=== PATIENT | female | born 1935 | race Caucasian/White ===

== ENCOUNTER 2016-07-22 13:37 | Inpatient (IN) | payer OTHER ==
[~2016-07-22] VITALS: Ht 162.6 cm; Wt 82.6 kg
[~2016-07-22 13:37] MED LIST: ACETAMINOPHEN325 M1 PO; ALPRAZOLAM 0.0.25 M1 PO; ASPIRIN EC81 M1 PO; HYDROCODON-ACE1 EA12 PO; HYDROCODONE-APA1 TA1 PO; HYDROCODONE-IBU1 TAB PO; IBUPROFEN 600600 M1 PO; LIPITOR20 MG PO; LISINOPRIL40 MG PO; METOPROLOL SUCC25 M1 PO; NAPROSYN500 MG PO; PREDNISONE 5 MG5 M1 PO; TRAMADOL 50 MG50 MG PO; VICOPROFEN 2001 EACH PO; VITAMIN D31000 UNI2 PO; XALATAN2.5 ML OPHTHALMIC
[2016-07-22 13:44] VITALS: BP 93/54
[2016-07-22 14:25] LABS: HEMATOCRIT 42.5 % (37.0-47.0); HEMOGLOBIN 13.9 gm/dL (12.0-15.0); MANUAL DIFF YES; MCH 27.8 pg (26.0-34.0); MCHC 32.6 g/dL (28.0-37.0); MCV 85.1 fL (80.0-100.0); PLATELET COUNT 265 thou/uL (150-400); RDW 16.2 % (10.5-14.5); WBC 10.1 thou/uL (4.0-11.0)
[2016-07-22 14:35] LABS: CALCIUM 10.9 mg/dL (8.5-10.1); CREATININE 2.5 mg/dL (0.6-1.0)
[2016-07-22 14:37] LABS: ALBUMIN 3.6 g/dL (3.4-5.0); TOTAL BILIRUBIN 1.8 mg/dL (<0.1-1.0); TOTAL PROTEIN 7.4 g/dL (6.4-8.2)
[2016-07-22 14:48] LABS: ABSOLUTE NEUTROPHILS 7.2 thou/uL (1.4-8.2); ANISOCYTOSIS 1+; TOTAL CELL COUNT 100
[2016-07-22 16:18] LABS: ICTOTEST (BILI CONFIRMATORY) Negative (Negative); URINE BILIRUBIN 2+ (Negative); URINE BLOOD NEGATIVE (Negative); URINE COLOR YELLOW; URINE GLUCOSE-RANDOM* NEGATIVE (Negative); URINE KETONES TRACE (Negative); URINE LEUKOCYTES-REFLEX NEGATIVE (Negative); URINE PROTEIN (DIPSTICK) TRACE (Negative); URINE SPECIFIC GRAVITY 1.025 (1.003-1.035); URINE UROBILINOGEN 0.2 E.U./dl (0.2-1.0)
[2016-07-22] MEDS ORDERED: GABAPENTIN 100100 MG PO (16:48)
[2016-07-22] MEDS ORDERED: HYDROCHLOROTH12.5 M2 PO (16:49)
[2016-07-22 16:50] VITALS: BP 110/45
[2016-07-22 18:00] VITALS: BP 110/76
[2016-07-23 03:51] VITALS: BP 113/47
[2016-07-23 06:30] LABS: CALCIUM 9.6 mg/dL (8.5-10.1); CREATININE 1.7 mg/dL (0.6-1.0); POTASSIUM 5.2 mmol/L (3.5-5.1)
[2016-07-23 07:19] LABS: HEMATOCRIT 38.3 % (37.0-47.0); HEMOGLOBIN 12.4 gm/dL (12.0-15.0); MCH 27.7 pg (26.0-34.0); MCHC 32.5 g/dL (28.0-37.0); MCV 85.3 fL (80.0-100.0); RBC 4.49 mil/uL (4.20-5.00); RDW 16.1 % (10.5-14.5); WBC 6.8 thou/uL (4.0-11.0)
[2016-07-23 08:00] VITALS: BP 121/55
[2016-07-23 16:00] VITALS: BP 113/58
[2016-07-23 19:05] VITALS: BP 108/43
[2016-07-23 23:05] VITALS: BP 135/80
[2016-07-24 02:23] LABS: CALCIUM 9.8 mg/dL (8.5-10.1); CREATININE 1.4 mg/dL (0.6-1.0); MAGNESIUM 1.6 mg/dL (1.8-2.4); POTASSIUM 4.3 mmol/L (3.5-5.1)
[2016-07-24 03:05] VITALS: BP 133/42
[2016-07-24 03:26] LABS: HEMATOCRIT 40.4 % (37.0-47.0); HEMOGLOBIN 13.2 gm/dL (12.0-15.0); MCH 27.8 pg (26.0-34.0); MCHC 32.6 g/dL (28.0-37.0); MCV 85.2 fL (80.0-100.0); RBC 4.75 mil/uL (4.20-5.00); RDW 16.5 % (10.5-14.5); WBC 11.1 thou/uL (4.0-11.0)
[2016-07-24 07:57] VITALS: BP 141/53
[2016-07-24 14:33] VITALS: BP 141/53
[2016-07-24 15:00] VITALS: BP 141/53
== END 2016-07-24 15:28 | disposition home or self-care (01) | DRG 682 ==
LOC: ER 13:37 → EROBS 15:36 → 4N 15:36
PROVIDERS: Emergency Medicine; Hospitalist; Internal Medicine
DX: N17.0 Acute kidney failure with tubular necrosis (principal); G93.41 Metabolic encephalopathy; I10 Essential (primary) hypertension; E78.5 Hyperlipidemia, unspecified; E86.0 Dehydration; Z79.82 Long term (current) use of aspirin; Z79.899 Other long term (current) drug therapy; Z90.49 Acquired absence of other specified parts of digestive tract; Z88.8 Allergy status to other drugs, medicaments and biological substances; Z90.710 Acquired absence of both cervix and uterus; Z88.6 Allergy status to analgesic agent; Z87.891 Personal history of nicotine dependence
CPT/HCPCS: 10790

== ENCOUNTER 2016-12-13 11:50 | Inpatient (IN) | payer OTHER ==
[~2016-12-13] VITALS: Ht 162.6 cm; Wt 78.2 kg
[2016-12-13] VITALS (15 sets, daily range): BP systolic 92–114; BP diastolic 42–81
--- NOTE | ~2016-12-13 | EKG ---
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1935 Requested By: Kitty Dsouza Order Number: [id number] MD: Saulo Guaman Measurements Intervals [place] Rate: 78 P: 35 HI: 155 QRS: 67 QRSD: 90 T: 89 QT: 406 QTc: 463 Interpretive Statements Sinus rhythm ST elevation, high lateral and septal leads, consider injury Compared to ECG 02/17/2006 18:26:45 ST (T wave) deviation now present Electronically Signed On 12-17-2016 9:06:59 CDT by Saulo Guaman [email or web address] <ELECTRONICALLY SIGNED> By: Saulo Guaman MD, [facility] 12/17/16 0906 1200 1200 Saulo Guaman MD, [facility] /EPI
--- NOTE | ~2016-12-13 | EKG ---
[address] [address] ELECTROCARDIOGRAM REPORT Name: LUCILLEARACELI MARTIN Room #: 215- ADM IN M.R.#: [id number] Admission: 12/13/16 Attend Phys: Kvng Velazquez MD Discharge: Date of : 37 Report #: [id number] THIS REPORT FOR: //name// [facility] Test Date: 2016-12-14 Test Time: 09:52:56 Pat Name: ARACELI ADKINS Department: Room: 215 Gender: F Motion Picture Set Grip: jinny : 1935 Requested By: Brooke Resendiz Order Number: [id number] MD: Saulo Guaman Measurements Intervals [place] Rate: 69 P: 53 VA: 168 QRS: 76 QRSD: 77 T: 65 QT: 412 QTc: 442 Interpretive Statements Sinus rhythm Abnormal R-wave progression, early transition Borderline ST elevation, lateral and anteroseptal leads Baseline wander in lead(s) V2,V3 Compared to ECG 02/17/2006 18:26:45 No significant change was found Electronically Signed On 12-17-2016 9:19:19 CDT by Saulo Guaman [email or web address] <ELECTRONICALLY SIGNED> By: Saulo Guaman MD, [facility] 12/17/1619 Saulo Guaman MD, [facility] /EPI
--- NOTE | ~2016-12-13 | O ---
[facility] [place] [address] OPERATIVE REPORT Name: ARACELI ESPINOZA Room #: 215-P ADM IN M.R.#: [id number] Admission: 12/13/16 Attend Phys: Kvng Velazquez MD Discharge: Date of : 37 Report #: [id number] THIS REPORT FOR: //name// CC: Mallorie Velazquez DATE OF SERVICE: 12/15/2016 PREOPERATIVE DIAGNOSIS: Acute left upper extremity ischemia. 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 OPERATIVE PROCEDURE PERFORMED: Left brachial artery embolectomy. SURGEON: Chris Sher MD WEAVING PROFESSOR: Carmita Barajas. ANESTHESIA: General. OPERATIVE INDICATIONS: Ms. Espinoza is a 81-year-old female, recently admitted to the hospital for non-ST segment elevation myocardial infarction. The patient was being managed medically. Last evening, she began having symptoms of left hand pain and numbness. Arterial Doppler performed this morning demonstrated evidence of acute occlusion of the brachial artery. The patient is brought to the operating room now emergently for embolectomy. OPERATIVE SUMMARY: The patient brought to the operating room and placed on the OR table in supine position. After anesthesia was induced via the general endotracheal route and monitoring lines were positioned, the patient's left arm was prepped and draped in sterile fashion with chlorhexidine. A transverse incision was made along the inner aspect of the left upper arm. We dissected just inferior to the biceps muscle. We found the neurovascular bundle, dissected free the vein, nerve, and the brachial artery from surrounding tissue. The brachial artery was notably very small, approximately 1.5-2 mm in size. We gave the patient 10,000 units of intravenous heparin. We incised the artery transversely. We passed a #2 embolectomy catheter proximally and returned acute thrombus. We made two more passes and we got no clot out and we subsequently flushed this site with heparinized saline solution. We then passed the catheters distally in this artery; we did not get much clot out. We flushed it with heparinized saline. We then reapproximated the blood vessel utilizing 7-0 and 6-0 Prolene. Prior to completing the closure, the site was backbled. Once it was completed, we released the clamp proximally. A Doppler signal was present distal to the embolectomy site. The nail beds were pink and had capillary refill present. We then irrigated this site. We did not reverse the [facility] [address] [place] [address] OPERATIVE REPORT Name: ARACELI ESPINOZA Room #: 215-P [facility] IN ..#: [id number] Admission: 12/13/16 Attend Phys: Kvng Velazquez MD Discharge: Date of : 37 Report #: [id number] heparin. The wound was closed in multiple layers with absorbable suture. The procedure was completed. The patient was taken to postanesthesia care unit in stable condition. Operative blood loss was about 20 mL. There were no intraoperative complications noted. All sponge and needle counts were reported as correct. <ELECTRONICALLY SIGNED> By: Chris Sher MD 12/16/16 1832 1223 1241 Chris Sher MD /nt
--- NOTE | ~2016-12-13 | CATHLAB ---
[facility] [place] [address] INVASIVE PROCEDURE REPORT Name: ARACELI ADKINS Room #: 215-P [facility] IN ..#: [id number] Admission: 12/13/16 Attend Phys: Kvng Velazquez, Discharge: Date of : 37 Date of Service: 12/13/16 1621 Report #: [id number] THIS REPORT FOR: //name// APPROVED REPORT Patient Details Patient Status: ED Room #: The patient is a 81 year-old female Indication Non-STEMI , Dyspnea, Unstable angina Risk Factors Hypercholesterolemia, Coronary Artery DiseaseHypertension Previous Procedures/Diagnoses Previous PCI Procedure Narrative The Right Groin^ was infiltrated with 1% Lidocaine subcutaneous anesthesia. A PINNACLE 4FR Sheath #[id number] sheath was inserted into the LFA^. Coronary angiography was performed using coronary diagnostic catheters. The right coronary system was accessed and visualized with a JR4 catheter. The left coronary system was accessed and visualized with a JL4 catheter. The left ventricle was accessed and visualized with a PIGTAIL catheter. Left ventricular/Aortic Valve gradient assessed via catheter pullback. Left ventriculogram was performed in FRENCH and AFGHAN projection. Hemostasis was obtained with manual pressure following sheath removal without any complications. The patient tolerated the procedure well and there were no complications associated with the procedure. There was no hematoma. Intraoperative Conscious Sedation Sedation start time: 14:39 Case end Time: 15:25 Fentanyl mcg Versed mg Fluoro Time: 2.10 minutes Dose: DAP 2172.70 cGycm2 294 mGy Contrast Type and Amount: Visipaque 150 ml Coronary Angiography The patient's coronary anatomy is co- dominant. [facility] [address] [place] [address] INVASIVE PROCEDURE REPORT Name: ARACELI ADKINS Bao Room #: 215-P ADM IN .R.#: [id number] Admission: 12/13/16 Attend Phys: Kvng Velazquez, Discharge: Date of : 37 Date of Service: 12/13/16 1621 Report #: [id number] Diagnostic Cath Left Main Large-caliber vessel, no flow limiting lesions. LAD Mild plaquing in the proximal segment. The distal LAD segment is a small-caliber vessel, has mild diffuse disease. Diagonal 2 Moderate size caliber vessel- originating off the mid LAD segment, with no flow-limiting lesions Circumflex Mild plaquing noted in the proximal distal segments, 30%. OM2 Moderate size caliber vessel, originating off the distal left circumflex artery. With no flow-limiting lesions. Right Coronary Codominant RCA, supplies a PDA. Mild plaquing noted in the proximal segment. There is a stent in the distal segment of the RCA, patent with mild restenosis. R PDA Moderate size caliber vessel, with no flow-limiting lesions. Left Ventriculography The left ventricle is mildly dilated in size with decreased contractility. The left ventricular ejection fraction is estimated to be 30-35%. Left ventricular wall motion abnormalities are present. Hemodynamics The aortic pressure is 101/65 mmHg with a mean of 82 mmHg. The left ventricular pressure is 112/29 mmHg with a mean of mmHg. The left ventricular end diastolic pressure is 33 mmHg. Conclusion 1. 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 2. Patent LAD with mild disease. 3. Patent stent in the distal RCA with mild restenosis. 4. Recommend medical therapy. Recommendations Aggressive Medical Therapy <ELECTRONICALLY SIGNED> By: Kimo Rogers MD 12/13/16 1621 162 162 Kimo Rogers MD /INF
--- NOTE | ~2016-12-13 | 2DMMODE ---
[facility] [address] [place] [address] 2 D/M-MODE ECHOCARDIOGRAM Name: LUCILLEARACELI Room #: 215-P [facility] IN M.R.#: [id number] Admission: 12/13/16 Attend Phys: Kvng Velazquez, Discharge: Date of : 37 Date of Service: 12/13/16 1443 Report #: [id number] THIS REPORT FOR: //name// APPROVED REPORT Study performed: 12/13/2016 13:43:24 EXAM: Comprehensive 2D, Doppler, and color-flow Echocardiogram Patient Location: ER Room #: 3 Status: routine BSA: 1.87 HR: 71 bpm BP: 102/52 mmHg Rhythm: NSR Other Information Study Quality: Adequate Indications Elevated troponin of 20. Neck pain. Hx: CAD, stents 2D Dimensions RVDd: 30.89 mm LVEF(%): 43.80 (>50%) IVSd: 10.26 (7-11mm) LVOT Diam: 19.65 (18-24mm) LVDd: 53.00 mm PWd: 8.91 (7-11mm) Ascending Ao: 27.73 (22-36mm) LVDs: 41.42 (25-40mm) Aortic Root: 27.41 mm Cox's LVEF: 43.80 % Volumes Left Atrial Volume (Systole) Single Plane 4CH: 56.66 mL Single Plane 2CH: 59.78 mL LA ESV Index: 33.00 mL/m2 Aortic Valve AoV Peak Nate.: 1.33 m/s AO Peak Gr.: 7.08 mmHg LVOT Max P.57 mmHg LVOT Max V: 0.94 m/s NABEEL Vmax: 2.15 cm2 Mitral Valve E/A Ratio: 0.7 MV Decel. Time: 169.83 ms [facility] [email or web address] [address] 2 D/M-[facility]P [facility] IN .R.#: [id number] Admission: 12/13/16 Attend Phys: Kvng Velazquez, Discharge: Date of : 37 Date of Service: 12/13/16 1443 Report #: [id number] MV E Max Nate.: 0.85 m/s MV A Nate.: 1.14 m/s MV PHT: 49.25 ms IVRT: 92.27 ms Pulmonary Valve PV Peak Nate.: 0.82 m/s PV Peak Gr.: 2.68 mmHg Tricuspid Valve TR Peak Nate.: 3.14 m/s RAP Estimate: 10.00 mmHg TR Peak Gr.: 39.52 mmHg PA Pressure: 50.00 mmHg Left Ventricle The left ventricle is normal size. Regional wall motion abnormalities are noted. Mild basal septal hypertrophy is present. Left ventricular systolic function is moderate to severely decreased. LVEF is 30-35%. Grade I - abnormal relaxation pattern. Right Ventricle The right ventricle is normal size. Right ventricle is mildly hypokinetic. Atria Left atrium is dilated. The right atrium size is normal. Aortic Valve The Aortic valve is sclerotic. No aortic regurgitation is present. There is no aortic valvular stenosis. Mitral Valve Mitral valve leaflets are thickened and calcified. There is mitral annular calcification. Moderate mitral regurgitation. No evidence of mitral valve stenosis. Tricuspid Valve The tricuspid valve is normal in structure. There is mild to moderate tricuspid regurgitation. The right atrial pressure is estimated at 10 mmHg. There is moderate pulmonary hypertension with an estimated PAP of 50mmHg. Pulmonic Valve The pulmonary valve is normal in structure. Mild pulmonic regurgitation. Great [address] [address] 2 D/M-MODE ECHOCARDIOGRAM Name: LUCILLE,ARACELI L Room #: 215-P [facility] IN [facility]#: [id number] Admission: 12/13/16 Attend Phys: Kvng Velazquez, Discharge: Date of : 37 Date of Service: 12/13/16 1443 Report #: [id number] The aortic root is normal in size. The ascending aorta is normal in size. IVC is normal in size and collapses >50% with inspiration. <Conclusion> The left ventricle is normal size. Left ventricular systolic function is moderate to severely decreased. Regional wall motion abnormalities are noted. LVEF is 30-35%. The right ventricle is normal size. Right ventricle is mildly hypokinetic. Left atrium is dilated. The Aortic valve is sclerotic. Mitral valve leaflets are thickened and calcified. There is mitral annular calcification. Moderate mitral regurgitation. The tricuspid valve is normal in structure. There is mild to moderate tricuspid regurgitation. The right atrial pressure is estimated at 10 mmHg. There is moderate pulmonary hypertension with an estimated PAP of 50mmHg. The pulmonary valve is normal in structure. Mild pulmonic regurgitation. <ELECTRONICALLY SIGNED> By: Kevin Smith MD 12/13/16 1443 1443 1443 Kevin Smith MD /INF
--- NOTE | ~2016-12-13 | 2DMMODE ---
[facility] [address] [address] 2 D/M-MODE ECHOCARDIOGRAM Name: ARACELI ADKINS Room #: 215-P ADM IN M.R.#: [id number] Admission: 12/13/16 Attend Phys: Kvng Velazquez, Discharge: Date of : 37 Date of Service: 12/16/16 1316 Report #: [id number] THIS REPORT FOR: //name// APPROVED REPORT Study performed: 12/16/2016 10:31:21 EXAM: Limited 2D Echocardiogram with contrast Patient Location: Bedside Room #: [facility] BSA: 1.84 HR: 74 bpm BP: 102/52 mmHg Other Information Study Quality: Adequate Indications Embolus to arm. Rule out apical thrombus. (Complete echo done 12/13/2016) Echo Enhancing Agent Indication: Rule out thrombus Agent(s) / Amount(s) Used: Optison 3 cc Left Ventricle The left ventricle is normal size. Left ventricular systolic function is moderate to severely decreased. with apical dyskinesia No left ventricular thrombus noted. LVEF is 30-35%. Right Ventricle The right ventricle is normal size. Atria Left atrium is dilated. The right atrium size is normal. Aortic Valve The Aortic valve is sclerotic. Mitral Valve There is mitral annular calcification. Mitral valve leaflets are thickened and calcified. no stenosis Tricuspid Valve The tricuspid valve is normal in structure. [facility] [address] [place] [address] 2 D/M-MODE ECHOCARDIOGRAM Name: ARACELI ADKINS Room #: 215-P ADM IN M.R.#: [id number] Admission: 12/13/16 Attend Phys: Kvng Velazquez, Discharge: Date of : 37 Date of Service: 12/16/16 1316 Report #: [id number] Pulmonic Valve The pulmonary valve is normal in structure. Great Vessels IVC is normal in size and collapses >50% with inspiration. Pericardium Trivial pericardial effusion noted. <Conclusion> The left ventricle is normal size. Left ventricular systolic function is moderate to severely decreased. with apical dyskinesia No left ventricular thrombus noted. LVEF is 30-35%. The right ventricle is normal size. Left atrium is dilated. The Aortic valve is sclerotic. There is mitral annular calcification. Mitral valve leaflets are thickened and calcified. no stenosis The tricuspid valve is normal in structure. The pulmonary valve is normal in structure. Trivial pericardial effusion noted. <ELECTRONICALLY SIGNED> By: Kevin Smith MD 12/16/166 15 15 Kevin Smith MD /INF
--- NOTE | ~2016-12-13 | HC ---
[facility] [place] [address] CONSULTATION Name: ARACELI ADKINS Room #: 215-P ADM IN M.R.#: [id number] Admission: 12/13/16 Attend Phys: Kvng Velazquez MD Discharge: Date of : 37 Report #: [id number] THIS REPORT FOR: //name// CC: Mallorie Velazquez CHIEF COMPLAINT: Difficulties voiding. Bladder prolapse. HISTORY OF PRESENT ILLNESS: The patient is a 81-year-old woman who is being seen today at the request of Dr. Velazquez for evaluation and management of difficulty voiding and bladder prolapse. Specifically, she was admitted with a non-STEMI. She had left heart catheterization performed and she is found to have a cardiomyopathy, not require intervention. She currently has developed acute thrombus in the brachial artery and is to undergo brachial artery embolectomy. Her genitourinary history is significant for difficult sense of incomplete emptying. She denies incontinence. She has been undergoing evaluation by spring tacker and urologist who is Dr. Scott. She does report some hesitancy. She was catheterized yesterday for 300 mL and this morning had a bladder scan which showed 171 mL in her bladder and 117 last night. ALLERGIES: INCLUDE MORPHINE, BACLOFEN AND HYDROMORPHONE. ILLNESSES: Hypertension, hyperlipidemia, coronary artery disease. SOCIAL HISTORY: She does not smoke. FAMILY HISTORY: Noncontributory. REVIEW OF SYSTEMS: She denies chest pain at the present time and has symptoms consistent with an acute obstruction of the brachial artery with of the left brachial artery. PHYSICAL EXAMINATION: GENERAL: On exam, she is awake, alert, sitting up in bed. VITAL SIGNS: Temperature is 36.3, pulse 68, respirations 16, blood pressure 112/69. ABDOMEN: Soft, without masses. LABORATORY DATA: White cell count 7.2 thousand, hemoglobin 12.3, hematocrit 37.5, platelets 192,000. Sodium is 143, potassium 3.6, chloride 108, CO2 25, BUN 23, creatinine 1.0, calcium 9.3. Urine clean catch from July is clear yellow, specific gravity is 1.025, pH is 5.5, negative for nitrites, blood and leukocyte esterase. IMPRESSION: Prolapsed bladder with voiding dysfunction in the face of multiple [facility] [address] [place] [address] CONSULTATION Name: [facility] Room #: [address] [place] [address] IN M.R.#: [id number] Admission: 12/13/16 Attend Phys: Kvng Velazquez MD Discharge: Date of : 37 Report #: [id number] comorbidities. PLAN: We will follow and monitor postvoid residuals with you. Ultimately, I recommend she follow up with Dr. Scott as an outpatient, once the acute issues involving her current hospitalization have stabilized, we will follow and assist with management. She may require catheterization or intermittent catheterization should she has been unable to void and carry high residuals. <ELECTRONICALLY SIGNED> By: Juan A Lindsey MD 12/16/16 0647 1002 1106 Juan A Lindsey MD /nt
--- NOTE | ~2016-12-13 | EKG ---
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 : 1935 Requested By: Kvng Velazquez Order Number: [id number] MD: Saulo Guaman Measurements Intervals [place] Rate: 71 P: 45 DE: 163 QRS: 72 QRSD: 86 T: 88 QT: 427 QTc: 465 Interpretive Statements Sinus rhythm Low voltage, precordial leads ST elevation consider high lateral and septal injury Compared to ECG 02/17/2006 18:26:45 No significant change was found Electronically Signed On 12-17-2016 9:08:43 CDT by Saulo Guaman [email or web address] <ELECTRONICALLY SIGNED> By: Saulo Guaman MD, [facility] 12/17/16 0908 1337 1337 Saulo Guaman MD, [facility] /EPI
--- NOTE | ~2016-12-13 | EKG ---
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: 1935 Requested By: Troy Newsome Order Number: [id number] MD: Saulo Guaman Measurements Intervals [place] Rate: 73 P: 53 HI: 166 QRS: 55 QRSD: 93 T: 23 QT: 414 QTc: 457 Interpretive Statements Sinus rhythm Low voltage, precordial leads Abnormal R-wave progression, early transition Minimal ST depression, inferior leads Borderline ST elevation, lateral leads Compared to ECG 02/17/2006 18:26:[address] elevation is no longer present Electronically Signed On 12-17-2016 9:24:44 CDT by Saulo Guaman [email or web address] <ELECTRONICALLY SIGNED> By: aSulo Guaman MD, [facility] 12/17/16 0924 0 020 Saulo Guaman MD, [facility] /EPI
--- NOTE | ~2016-12-13 | S ---
[facility] [address] [address] [place] [address] SURGICAL PATH RPT PROCEDURE Name: ALIZE ESPINOZA Room #: 215-P ADM IN M.R.#: [id number] Admission: 12/13/16 Date of : 39 Discharge: Report #: [id number] Path Case #: [id number] PATHOLOGY REPORT COLLECTION DATE: 12/15/2016 RECEIVED DATE: 12/16/2016 SUBMITTING PHYS: Dr. Chris Sher OTHER PHYS: Dr. Kvng Lowe SPECIMEN(S) RECEIVED: A.Left brachial embolus * * * * * * * * * * * * FINAL DIAGNOSIS: Left brachial embolus, removal: - Fibrin and elements of peripheral blood, consistent with embolus. (IUV:mml; 12/17/2016) PATHOLOGIST: Elli Dietrich M.D. REPORT ELECTRONICALLY SIGNED BY: Elli Dietrich M.D. DATE/TIME: 12/17/2016 15:26 * * * * * * * * * * * * GROSS PATHOLOGY: The specimen is received in formalin, labeled "Alize Espinoza and left brachial embolus", is a longitudinal 1.0 x 0.4 cm dark brown clot. Entirely submitted in A1. (SWS; 12/16/2016) CLINICAL HISTORY: Left brachial embolus INITIAL CPT CODE(S): A; 92256 Professional services performed by [facility] at [facility] [address], [place] [address] Technical services performed by [facility] at [address] [place] [address], [address], [place] [address]. [facility] [address] [place] [address] SURGICAL PATH RPT PROCEDURE Name: LUCILLEALIZE MARTIN Room #: 215-P ADM IN M.R.#: [id number] Admission: 12/13/16 Date of : 39 Discharge: Report #: [id number] Path Case #: [id number] [address] PHONE: [phone] DIRECTOR: Curtis Bermudez M.D. * * * END OF REPORT * * *
--- NOTE | ~2016-12-13 | HC ---
[facility] [place] [address] CONSULTATION Name: ARACELI ADKINS Room #: 215-P [facility] IN M.R.#: [id number] Admission: 12/13/16 Attend Phys: Kvng Velazquez MD Discharge: 12/18/16 Date of : 39 Report #: [id number] THIS REPORT FOR: //name// CC: Mallorie Velazquez DATE OF SERVICE: 12/13/2016 REASON FOR CONSULTATION: Elevated troponin. HISTORY OF PRESENT ILLNESS: The patient is a 81-year-old with a history of hypertension, hyperlipidemia as well as history of coronary artery disease, status post DC in her 60s x 2. She said that she had her MIs at [facility]. We have no records of this available. Apparently, 2-3 days ago, she started developing a pressure between her shoulder blades that radiated to her neck and to her bilateral shoulders. She denied that this really worsened with exertion or activity, but this did last and she said it was very severe. This resolved and for the past 24-48 hours, she has just had profound fatigue. She denies any chest pain. She denies any pain in her neck or any pains radiating down her arms. She denies any chest pain currently. She reports that she is profoundly weak and has had difficulty walking, but denies any shortness of breath. She denies any PND or orthopnea. She denies presyncope or syncope. PAST MEDICAL HISTORY: 1. Hypertension. 2. Hyperlipidemia. 3. Coronary artery disease. 4. Recent admission in July for dehydration and acute renal failure, which improved with discontinuation of lisinopril and naproxen. SOCIAL HISTORY: Does not smoke. FAMILY HISTORY: Noncontributory. ALLERGIES: INCLUDE MORPHINE, BACLOFEN AND DILAUDID. PHYSICAL EXAMINATION: VITAL SIGNS: Temperature is 36.4, pulse 66, respiration 16, blood pressure 112/53, sats are 94% on room air. GENERAL: She is alert and oriented x 3, in no acute distress. HEENT: Oropharynx is clear. Mucous membranes are moist. Sclerae are anicteric. NECK: Supple, with no thyromegaly. HEART: Regular rate and rhythm with no murmurs, rubs or gallops. LUNGS: Clear to auscultation bilaterally. ABDOMEN: Soft, nontender, nondistended with no hepatosplenomegaly. [address] [address] CONSULTATION Name: ARACELI ADKINS Room #: 215-P [facility] IN [facility]#: [id number] Admission: 12/13/16 Attend Phys: Kvng Velazquez MD Discharge: 12/18/16 Date of : 39 Report #: [id number] EXTREMITIES: There is no clubbing, cyanosis or edema. NEUROLOGIC: Her cranial nerves 2-12 are intact. LABORATORY DATA: White count 7.5, hemoglobin 12.5, platelets 167. Coags: INR 1.1. Chemistry: Sodium ____, T-bili 2.1, AST 64, ALT 29. Troponin is elevated at 20.8. Medications have been reviewed and she has received Lipitor, aspirin and metoprolol here in the Emergency Room and heparin drip is being initiated. EKG demonstrates normal sinus rhythm with evidence of an isolated ST segment in lead V2 with a T-wave inversion, but no concordant ST segments anywhere else on the EKG. This is different than her last EKG documented here from 2005. A stat echo was performed while I was in the room and there is evidence of anterior septal hypokinesis with some thinning suggestive that this may be old, but I cannot rule out an acute process or subacute process. A repeat EKG was performed while I was in the room as well and there have not been any changes in this isolated ST segment in lead V2. ASSESSMENT AND PLAN: 1. Non-ST segment elevation myocardial infarction. 2. Coronary artery disease. 3. Hypertension. 4. Hyperlipidemia. 5. History of prior acute renal failure. 6. Elevated liver function tests. IMPRESSION: In summary, the patient is a 81-year-old with history of prior coronary artery disease presenting with weakness as her primary complaint. Her pain across her shoulders that occurred and resolved a few days ago likely represents an episode of unstable angina. She is currently chest pain free and her presentation is more suggestive of a non-ST segment elevation at this time. However, we have discussed the situation with the patient and the daughter and we will proceed with diagnostic catheterization today. We have discussed the details of this procedure with the daughter and the patient including the risks, which include but not limited to bleeding, vascular damage, stroke, myocardial infarction and need for possible surgical interventions. They understand these risks and are willing to proceed. <ELECTRONICALLY SIGNED> By: Troy Newsome MD 12/19/16 1106 1404 Troy Newsome MD /nt
[~2016-12-13 11:50] MED LIST changes: +GABAPENTIN 100100 MG PO; +HYDROCHLOROTH12.5 M2 PO
[2016-12-13 12:22] LABS: HEMATOCRIT 37.2 % (37.0-47.0); HEMOGLOBIN 12.5 gm/dL (12.0-15.0); MCH 29.8 pg (26.0-34.0); MCHC 33.7 g/dL (28.0-37.0); MCV 88.6 fL (80.0-100.0); PLATELET COUNT 167 thou/uL (150-400); RBC 4.19 mil/uL (4.20-5.00); RDW 14.6 % (10.5-14.5); WBC 7.5 thou/uL (4.0-11.0)
[2016-12-13 12:23] LABS: MANUAL DIFF YES
[2016-12-13 12:29] LABS: CALCIUM 9.9 mg/dL (8.5-10.1); CREATININE 0.9 mg/dL (0.6-1.0); POTASSIUM 3.6 mmol/L (3.5-5.1)
[2016-12-13 12:37] LABS: TOTAL BILIRUBIN 2.1 mg/dL (<0.1-1.0); TOTAL PROTEIN 6.3 g/dL (6.4-8.2)
[2016-12-13 12:38] LABS: TROPONIN-I 20.82 ng/mL (<0.04-0.07)
[2016-12-13 12:50] LABS: APTT 24.4 Seconds (24.5-32.8); INR 1.1; PROTIME 10.9 Seconds (9.3-11.4)
[2016-12-13 13:21] LABS: ABSOLUTE NEUTROPHILS 4.6 thou/uL (1.4-8.2); PLATELET ESTIMATE NORMAL; TOTAL CELL COUNT 100
[2016-12-13] MEDS ORDERED: KEPPRA 500 MG500 M1 PO (17:02)
[2016-12-13] MEDS ORDERED: PROZAC20 MG PO (17:02)
[2016-12-13] MEDS ORDERED: VITAMIN D1000 UNI1 PO (17:03)
[2016-12-13] MEDS ORDERED: VITAMIN B-12500 MCG PO (17:04)
[2016-12-13] MEDS ORDERED: LOPRESSOR25 PO (17:06)
[2016-12-14 03:30] VITALS: BP 116/63
[2016-12-14 03:36] VITALS: BP 116/63
[2016-12-14 04:21] LABS: HEMATOCRIT 37.5 % (37.0-47.0); HEMOGLOBIN 12.3 gm/dL (12.0-15.0); MCH 29.4 pg (26.0-34.0); MCHC 32.8 g/dL (28.0-37.0); MCV 89.7 fL (80.0-100.0); RBC 4.18 mil/uL (4.20-5.00); RDW 15.3 % (10.5-14.5); WBC 7.2 thou/uL (4.0-11.0)
[2016-12-14 04:35] LABS: ALBUMIN 2.8 g/dL (3.4-5.0); CALCIUM 9.3 mg/dL (8.5-10.1); POTASSIUM 3.6 mmol/L (3.5-5.1); TOTAL BILIRUBIN 1.6 mg/dL (<0.1-1.0); TOTAL PROTEIN 6.1 g/dL (6.4-8.2)
[2016-12-14 07:34] VITALS: BP 117/64
[2016-12-14 10:53] VITALS: BP 114/52
[2016-12-14 11:18] LABS: CHOLESTEROL 102 mg/dL (<200); HDL CHOLESTEROL 50 mg/dL (>40); LDL CHOLESTEROL 35 mg/dL (<100); TRIGLYCERIDE 89 mg/dL (<150); VLDL 18 mg/dL (<40)
[2016-12-14 15:09] VITALS: BP 91/66
[2016-12-14 20:07] VITALS: BP 95/54
[2016-12-15] VITALS (8 sets, daily range): BP systolic 94–118; BP diastolic 43–87
[2016-12-16 04:03] VITALS: BP 95/44
[2016-12-16 09:10] VITALS: BP 88/68
[2016-12-16 10:00] LABS: HEMATOCRIT 36.4 % (37.0-47.0); HEMOGLOBIN 12.1 gm/dL (12.0-15.0); MCH 29.8 pg (26.0-34.0); MCHC 33.3 g/dL (28.0-37.0); MCV 89.7 fL (80.0-100.0); RBC 4.06 mil/uL (4.20-5.00); RDW 15.4 % (10.5-14.5); WBC 6.3 thou/uL (4.0-11.0)
[2016-12-16 10:06] LABS: CALCIUM 9.1 mg/dL (8.5-10.1); MAGNESIUM 1.3 mg/dL (1.8-2.4); POTASSIUM 3.7 mmol/L (3.5-5.1)
[2016-12-16 11:40] VITALS: BP 108/57
[2016-12-16 15:18] VITALS: BP 99/46
[2016-12-16 20:17] VITALS: BP 98/46
[2016-12-16 21:00] VITALS: BP 116/63
[2016-12-17 04:38] VITALS: BP 110/57
[2016-12-17 06:02] LABS: CALCIUM 9.3 mg/dL (8.5-10.1); CREATININE 0.9 mg/dL (0.6-1.0); MAGNESIUM 1.4 mg/dL (1.8-2.4); POTASSIUM 3.6 mmol/L (3.5-5.1)
[2016-12-17 06:22] LABS: HEMATOCRIT 37.9 % (37.0-47.0); HEMOGLOBIN 12.3 gm/dL (12.0-15.0); MCH 29.3 pg (26.0-34.0); MCHC 32.4 g/dL (28.0-37.0); MCV 90.4 fL (80.0-100.0); RBC 4.2 mil/uL (4.20-5.00); WBC 6.8 thou/uL (4.0-11.0)
[2016-12-17 08:25] VITALS: BP 141/70
[2016-12-17 11:45] VITALS: BP 113/48
[2016-12-17 15:50] VITALS: BP 122/61
[2016-12-17 19:35] VITALS: BP 125/49
[2016-12-18 04:45] VITALS: BP 104/56
[2016-12-18 07:06] LABS: HEMOGLOBIN 10.8 gm/dL (12.0-15.0); MCH 30.2 pg (26.0-34.0); MCHC 33.7 g/dL (28.0-37.0); MCV 89.6 fL (80.0-100.0); RBC 3.57 mil/uL (4.20-5.00); RDW 14.9 % (10.5-14.5); WBC 5.3 thou/uL (4.0-11.0)
[2016-12-18 07:07] VITALS: BP 98/74
[2016-12-18 07:14] LABS: CALCIUM 8.8 mg/dL (8.5-10.1); CREATININE 0.6 mg/dL (0.6-1.0); MAGNESIUM 1.5 mg/dL (1.8-2.4); POTASSIUM 3.7 mmol/L (3.5-5.1)
[2016-12-18 09:21] VITALS: BP 118/54
[2016-12-18 11:30] VITALS: BP 112/91
[2016-12-18] MEDS ORDERED: CYCLOBENZAPRINE5 MG PO (12:12)
[2016-12-18] MEDS ORDERED: PRADAXA150 MG PO (12:13)
[2016-12-18] MEDS ORDERED: CARVEDILOL6.25 MG PO (12:14)
[2016-12-18 17:21] VITALS: BP 126/98
[2016-12-18 17:24] VITALS: BP 126/98
== END 2016-12-18 17:50 | DRG 253 ==
LOC: ER 11:50 → 2N 13:27
PROVIDERS: Internal Medicine; Physician Assistant
PROC: 4A023N7 Measurement of Cardiac Sampling and Pressure, Left Heart, Percutaneous Approach (ICD-10-PCS; 2016-12-14)
PROC: B2151ZZ Fluoroscopy of Left Heart using Low Osmolar Contrast (ICD-10-PCS; 2016-12-14)
PROC: B2111ZZ Fluoroscopy of Multiple Coronary Arteries using Low Osmolar Contrast (ICD-10-PCS; 2016-12-14)
PROC: 03C83ZZ Extirpation of Matter from Left Brachial Artery, Percutaneous Approach (ICD-10-PCS; principal; 2016-12-15)
PROC: 05HB33Z Insertion of Infusion Device into Right Basilic Vein, Percutaneous Approach (ICD-10-PCS; 2016-12-15)
DX: I21.4 Non-ST elevation (NSTEMI) myocardial infarction (principal); I74.2 Embolism and thrombosis of arteries of the upper extremities; E44.0 Moderate protein-calorie malnutrition; N81.10 Cystocele, unspecified; I25.10 Atherosclerotic heart disease of native coronary artery without angina pectoris; G70.00 Myasthenia gravis without (acute) exacerbation; E78.5 Hyperlipidemia, unspecified; I11.9 Hypertensive heart disease without heart failure; R94.5 Abnormal results of liver function studies; Z60.2 Problems related to living alone; Z88.6 Allergy status to analgesic agent; Z90.710 Acquired absence of both cervix and uterus; Z90.49 Acquired absence of other specified parts of digestive tract; Z79.82 Long term (current) use of aspirin; Z79.899 Other long term (current) drug therapy; I25.2 Old myocardial infarction; Z87.891 Personal history of nicotine dependence; Z68.29 Body mass index [BMI] 29.0-29.9, adult
CPT/HCPCS: 10081; 27001; 50101; 50386; 50417; 50455; 51165; 51301; 56524; 56526; 56528; 56531; 62110; 62900; 70005

== ENCOUNTER 2017-03-11 12:48 | Inpatient (IN) | payer OTHER ==
[~2017-03-11] VITALS: Ht 162.6 cm; Wt 73.7 kg
--- NOTE | ~2017-03-11 | EKG ---
[address] [place] [address] ELECTROCARDIOGRAM REPORT Name: LUCILLEARACELI MARTIN Room #: 360- ADM IN M.R.#: [id number] Admission: 03/11/17 Attend Phys: Bradly Trinidad MD Discharge: Date of : 39 Report #: [id number] THIS REPORT FOR: //name// [facility] ED Test Date: 2017-03-11 Test Time: 13:15:34 Pat Name: ARACELI ADKINS Department: Room: [facility] Gender: F Rn Angiography: QAMAR : 1935 Requested By: Kitty Dsouza Order Number: [id number] MD: Troy Newsome Measurements Intervals [place] Rate: 132 P: 66 ME: 150 QRS: 81 QRSD: 91 T: 56 QT: 301 QTc: 446 Interpretive Statements Sinus tachycardia Atrial premature complexes LAE, consider biatrial enlargement Borderline right axis deviation Artifact in lead(s) II,III,aVL,aVF Compared to ECG 12/15/2016 02:01:36 Atrial premature complex(es) now present Sinus rhythm no longer present ST (T wave) deviation no longer present Electronically Signed On 03-11-2017 21:48:50 [employer] by Troy Newsome [email or web address] <ELECTRONICALLY SIGNED> By: Troy Newsome MD 03/11/17 2148 1315 1315 Troy Newsome MD /EPI
--- NOTE | ~2017-03-11 | HC ---
[facility] [place] [address] CONSULTATION Name: ARACELI ADKINS Bao Room #: 247-P [facility] IN M.R.#: [id number] Admission: 03/11/17 Attend Phys: Bradly Trinidad MD Discharge: 03/13/17 Date of : 39 Report #: [id number] THIS REPORT FOR: //name// CC: Nicole Trinidad HISTORY OF PRESENT ILLNESS: The patient is a 81-year-old white female who presents to the emergency room with nausea and vomiting. Since admission, she is found to be hypotensive, tachypneic, and tachycardic. She is felt to have severe sepsis. Pulmonary consultation was requested. She is currently in the ICU. She is semi somnolent. She is hypotensive. Most of the history is obtained from the family and the records. She currently resides in a detention due to progressive generalized weakness along with dementia. She is felt to have Alzheimer dementia. According to the family, the patient's health has been declining since July. Prior to that, she was living independently. She has had trouble with poor short term memory, though this has worsened along with forgetfulness. She has also had progressive weakness resulting in recurrent falls. About a month ago, she was hospitalized and was diagnosed with myocardial infarction. She is also felt to have cardiomyopathy. She was in her usual state of health until the patient was found to be confused and dyspneic. She was admitted for possible pneumonia. PAST MEDICAL HISTORY: Notable for Takotsubo cardiomyopathy, hypertension, hyperlipidemia, left arm atrial thrombosis, on anticoagulation; dementia, myasthenia gravis, hypertension, prolapse bladder, and past history of myocardial infarction times 3. PAST SURGICAL HISTORY: Include colectomy and hysterectomy. ALLERGIES: HYDROMORPHONE, MORPHINE, BACLOFEN, reactions not specified. MEDICATIONS: Her medications from the facility include Flexeril, Pradaxa, Coreg, Neurontin, Prozac, Keppra, vitamin D, vitamin B supplements, aspirin, calcium supplements, and Zestril. FAMILY HISTORY: Noncontributory. SOCIAL HISTORY: The patient has smoked for many years, but quit more than 16 years ago. There is no history of alcohol use. She has three children. REVIEW OF SYSTEMS: As mentioned above, otherwise limited as the patient is in respiratory distress and also has history of dementia. [facility] [address] [place] [address] CONSULTATION Name: ARACELI ADKINS Room #: 247-P [facility] IN M.R.#: [id number] Admission: 03/11/17 Attend Phys: Bradly Trinidad MD Discharge: 03/13/17 Date of : 39 Report #: [id number] PHYSICAL EXAMINATION: GENERAL: She is arousable, but semi somnolent, appears tachypneic. VITAL SIGNS: Temperature maximum is 103.2 degrees Fahrenheit, pulse is 90, respiratory rate is 20, blood pressure currently 76/26 mmHg, and saturation 92%. HEENT: Normocephalic, atraumatic. NECK: Supple without lymphadenopathy or thyromegaly. CHEST: Breath sounds are fair, few scattered crackles bilaterally. No wheezes. CARDIOVASCULAR: Normal S1, S2. There is no murmur or gallop. There is no JVD. There is no carotid bruit. Pulses are 2+/4+ bilaterally. BREASTS: Deferred. ABDOMEN: Soft, nontender, no organomegaly or masses felt. GENITOURINARY: Deferred. RECTAL: Deferred. EXTREMITIES: There is no edema, cyanosis, or clubbing. LABORATORY DATA: Portable chest x-ray shows increased vascular markings, cardiomegaly, small bilateral pleural effusions. BNP 14,500. Lactic acid is 1.6. CT head was remarkable for moderate cerebral atrophy, chronic white matter changes. Troponin 0.9. Cultures so far has been negative. Sodium 139, potassium 3.5, chloride 102, CO2 of 26, BUN is 24, and creatinine is 1.1. Liver function enzymes are grossly unremarkable. WBC 21,300 with 10% bandemia. Albumin 2.8. IMPRESSION: 1. Febrile illness, hypertension in this 81-year-old white female with Alzheimer dementia, Takotsubo cardiomyopathy. Chest x-ray shows increased vascular markings. She had recent nausea, vomiting, and diarrhea. Suspect the patient may have pneumonia. We will need to rule out urinary source. Also, need to consider gastrointestinal processes. 2. Severe sepsis with multisystem organ dysfunction. 3. Hypotension due to severe sepsis. 4. Recent Takotsubo cardiomyopathy. 5. Elevated troponin. 6. Encephalopathy, suspect toxic and metabolic with underlying dementia. The patient suspected to have Alzheimer's. 7. Recent left arterial thrombosis, on anticoagulation. 8. Medical directive. According to the 2 daughters, she has previously stated, she desires to be DNR. RECOMMENDATION AND DISCUSSION: I have discussed the findings with the patient and severity of illness with the patient. At this time, the daughters does not desire aggressive intervention. They in fact ready for hospice. Our concern is the patient's health has been deteriorating since July of this year without much improvement. There is some progressive decline in memory. I concur with the family's wishes for hospice. We will consult hospice. We [address] [address] CONSULTATION Name: ARACELI ADKINS Room #: 247-P [facility] IN ..#: [id number] Admission: 03/11/17 Attend Phys: Bradly Trinidad MD Discharge: 03/13/17 Date of : 39 Report #: [id number] will consult them today. The family is also open to comfort care when all the other family arrives. Thank you for this consultation. <ELECTRONICALLY SIGNED> By: Kenny Peñaloza MD 03/17/17 1139 1516 1925 Kenny Peñaloza MD /nt
[~2017-03-11 12:48] MED LIST changes: +CARVEDILOL6.25 MG PO; +CYCLOBENZAPRINE5 MG PO; +KEPPRA 500 MG500 M1 PO; +LOPRESSOR25 PO; +PRADAXA150 MG PO; +PROZAC20 MG PO; +VITAMIN B-12500 MCG PO; +VITAMIN D1000 UNI1 PO
[2017-03-11 12:49] VITALS: BP 97/52
[2017-03-11 13:51] LABS: HEMATOCRIT 36.6 % (37.0-47.0); MCH 28.8 pg (26.0-34.0); MCHC 32.8 g/dL (28.0-37.0); MCV 87.9 fL (80.0-100.0); PLATELET COUNT 187 thou/uL (150-400); RBC 4.16 mil/uL (4.20-5.00); RDW 16.4 % (10.5-14.5); WBC 11.6 thou/uL (4.0-11.0)
[2017-03-11 13:52] LABS: MANUAL DIFF YES
[2017-03-11 14:08] LABS: ALBUMIN 2.8 g/dL (3.4-5.0); POTASSIUM 4.2 mmol/L (3.5-5.1); TOTAL BILIRUBIN 1.3 mg/dL (<0.1-1.0); TOTAL PROTEIN 7.3 g/dL (6.4-8.2); TROPONIN-I 0.16 ng/mL (<0.06)
[2017-03-11 14:09] LABS: INR 1.4; PROTIME 13.8 Seconds (9.3-11.4)
[2017-03-11 14:29] LABS: ABSOLUTE NEUTROPHILS 10.8 thou/uL (1.4-8.2); TOTAL CELL COUNT 100
[2017-03-11 14:30] LABS: ANISOCYTOSIS 1+; LARGE PLATELETS OCCASIONAL; PLATELET ESTIMATE NORMAL
[2017-03-11 14:45] LABS: URINE BILIRUBIN NEGATIVE (Negative); URINE BLOOD 1+ (Negative); URINE COLOR YELLOW; URINE GLUCOSE-RANDOM* NEGATIVE (Negative); URINE KETONES NEGATIVE (Negative); URINE NITRITE NEGATIVE (Negative); URINE PROTEIN (DIPSTICK) 2+ (Negative); URINE SPECIFIC GRAVITY 1.025 (1.003-1.035); URINE UROBILINOGEN 0.2 E.U./dl (0.2-1.0)
[2017-03-11 14:52] LABS: BACTERIA None Seen /HPF (None Seen); SQUAMOUS 0-3 Few /LPF (0-3); URINE RBC 0-2 Rare /HPF (0-2); URINE WBC 0-5 Rare /HPF (0-5)
[2017-03-11 14:53] LABS: AMORPHOUS URATES Few /LPF (None Seen); CRYSTALS None Seen /LPF (None Seen)
[2017-03-11 15:21] VITALS: BP 101/47
[2017-03-11 15:28] VITALS: BP 91/40
[2017-03-11 16:10] VITALS: BP 146/60
[2017-03-11 19:35] VITALS: BP 136/51
[2017-03-12] VITALS (17 sets, daily range): BP systolic 64–115; BP diastolic 26–77
[2017-03-12 01:49] LABS: HEMATOCRIT 32.8 % (37.0-47.0); HEMOGLOBIN 10.6 gm/dL (12.0-15.0); MCH 28.6 pg (26.0-34.0); MCHC 32.2 g/dL (28.0-37.0); MCV 88.8 fL (80.0-100.0); RBC 3.69 mil/uL (4.20-5.00); RDW 15.6 % (10.5-14.5); WBC 21.3 thou/uL (4.0-11.0)
[2017-03-12 02:06] LABS: CALCIUM 8.9 mg/dL (8.5-10.1); CREATININE 1.1 mg/dL (0.6-1.0); POTASSIUM 3.5 mmol/L (3.5-5.1); TROPONIN-I 0.45 ng/mL (<0.06)
[2017-03-13] VITALS (17 sets, daily range): BP systolic 84–130; BP diastolic 44–87
== END 2017-03-13 19:10 | disposition hospice, home (50) | DRG 871 ==
LOC: ER 12:48 → 3W 15:06 → EROBS 15:06 → 3W 15:43 → ICU 03-12 15:23
PROVIDERS: Emergency Medicine; Hospitalist; Physician Assistant
DX: A41.9 Sepsis, unspecified organism (principal); J69.0 Pneumonitis due to inhalation of food and vomit; G93.41 Metabolic encephalopathy; I50.20 Unspecified systolic (congestive) heart failure; G30.9 Alzheimer's disease, unspecified; Z51.5 Encounter for palliative care; I11.0 Hypertensive heart disease with heart failure; F02.80 Dementia in other diseases classified elsewhere, unspecified severity, without behavioral disturbance, psychotic disturbance, mood disturbance, and anxiety; R65.20 Severe sepsis without septic shock; E78.5 Hyperlipidemia, unspecified; G70.00 Myasthenia gravis without (acute) exacerbation; Z79.01 Long term (current) use of anticoagulants; I25.2 Old myocardial infarction; Z90.49 Acquired absence of other specified parts of digestive tract; Z90.710 Acquired absence of both cervix and uterus; Z79.82 Long term (current) use of aspirin; Z87.891 Personal history of nicotine dependence; Z79.899 Other long term (current) drug therapy; Z88.5 Allergy status to narcotic agent; Z88.8 Allergy status to other drugs, medicaments and biological substances
CPT/HCPCS: 10203; 10779